=== PATIENT | male | born 1990 | race Caucasian/White ===

== ENCOUNTER → 2019-11-14 | Outpatient (CLI) | payer OTHER ==
[~2019-11-14] MED LIST: BREO ELLIPTA 11 EACH INH; CLARITIN10 MG PO; FUROSEMIDE 40 M40 MG PO; LISINOPRIL20 MG PO; LORCET 5-325 M1 EACH PO; MELATONIN3 M1 PO; NORVASC10 MG PO; PREDNISONE 10 M10 M1 PO; PROAIR HFA8.5 GM INH; RENVELA800 MG PO
--- NOTE | ~2019-11-14 | OP ---
[facility] [address] [place] [address] OPERATIVE REPORT Name: DEBBIE KAM III Room: [facility]#: [id number] Admission: 11/14/19 Attend Phys: Jacques Rodríguez Discharge: Date of : 86 Report #: [id number] THIS REPORT FOR: //name// cc: ZAINAB MEEK DO Physician not on staff ~ THIS REPORT FOR: //name// CC: Jacques MEEK Physician staff DATE OF SERVICE: 11/19/2019 PREOPERATIVE DIAGNOSIS: End-stage renal disease. POSTOPERATIVE DIAGNOSIS: End-stage renal disease. OPERATION: 1. Laparoscopic placement of tunneled intraperitoneal catheter. 2. Laparoscopic omentopexy. SURGEON: Jacques Rodríguez MD ANESTHESIA: General. ESTIMATED BLOOD LOSS: Minimal. SPECIMEN: None. DESCRIPTION OF PROCEDURE: After informed consent was obtained, the patient was brought to the operating room and placed supine. SCDs were placed and working, preoperative antibiotics were administered, general anesthesia was induced. The abdomen was prepped and draped in a usual sterile fashion. A 5 mm incision was made in the left upper quadrant. A 5 mm trocar was placed under direct vision. Pneumoperitoneum was established. Left sided 5 mm trocar was placed. A left rectus sheath, 8 mm trocar was placed. A 62 cm [employer] catheter was placed through the 8 mm port. The tip was then placed down into the pelvis. Catheter was then tunneled to the left upper quadrant of the abdomen using a tunneling device. The omentum was then brought up to the right upper quadrant. A 2-0 Vicryl suture was used to go through the skin and the fascia down through the omentum and then back out through the skin, performing an omentopexy. This was tied down. The ports were removed under direct vision. [place] [address] OPERATIVE REPORT Name: DEBBIE KAM III Room: [facility]#: [id number] Admission: 11/14/19 Attend Phys: Jacques Rodríguez Discharge: Date of : 86 Report #: [id number] easily with 750 mL of heparinized saline. It drained easily as well. A 500 mL of heparinized saline was left in the abdomen. The skin was then closed with 4-0 Monocryl. Sterile dressings were applied. COMPLICATIONS: None. DISPOSITION: The patient was taken to recovery in satisfactory condition. By: [id number] [id number] Rodríguez MD /marta
== END ==
LOC: M.LAB 10:44
PROVIDERS: ATTEND Surgery
DX: Z01.812 Encounter for preprocedural laboratory examination (principal); Z11.9 Encounter for screening for infectious and parasitic diseases, unspecified

== ENCOUNTER 2019-11-19 09:48 | Observation (INO) | payer OTHER ==
[~2019-11-19] VITALS: Ht 193 cm; Wt 71.0 kg
[~2019-11-19 09:48] MED LIST changes: -LORCET 5-325 M1 EACH PO
[2019-11-19 10:28] LABS: HEMATOCRIT 27.2 % (42.0-52.0); HEMOGLOBIN 9.8 gm/dL (14.0-18.0); MCH 31.3 pg (26.0-34.0); MCHC 35.9 g/dL (28.0-37.0); MCV 87.3 fL (80.0-100.0); MPV 7.3 fl. (7.2-11.1); RBC 3.11 mil/uL (4.50-6.00); WBC 8.1 thou/uL (4.0-11.0)
[2019-11-19 10:37] LABS: CREATININE 10.6 mg/dL (0.6-1.3); POTASSIUM 5.2 mmol/L (3.5-5.1)
[2019-11-19] MEDS ORDERED: LORCET 5-325 M1 EACH PO (14:12)
--- NOTE | 2019-11-19 16:32 | EKG ---
[place] [address] ELECTROCARDIOGRAM REPORT Name: DEBBIE KAM III Room: [facility]#: [id number] Admission: 11/19/19 Attend Phys: Jacques Steiner Discharge: Date of : 86 Date of Service: 11/19/19 1013 Report #: [id number] THIS REPORT FOR: //name// 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
[2019-11-19 18:40] VITALS: BP 170/95
[2019-11-19 23:41] VITALS: BP 135/85
--- NOTE | 2019-11-20 00:53 | NUR ---
AT [address] VANN ON STATUS OF PATIENT'S DRSG - 1/2 THICKNESS OF 4X4 GAUZE SATURATED, TOP LAYERS HAVE BLEEDING LESS THAN SIZE OF DIME. ORDER GIVEN TO REMOVE FOAM TAPE, REINFORCE WITH TWO BOXES OF 4X4 GAUZE, PLACE FOAM TAPE REALLY TIGHTLY, AND REAPPLY ABD BINDER; AM CBC LAB. DR VANN WILL SEE PATIENT AT 6AM.
[2019-11-20 04:28] LABS: HEMATOCRIT 21.8 % (42.0-52.0); HEMOGLOBIN 7.9 gm/dL (14.0-18.0); MCH 31.5 pg (26.0-34.0); MCHC 36.1 g/dL (28.0-37.0); MCV 87.4 fL (80.0-100.0); MPV 8.1 fl. (7.2-11.1); NUCLEATED RBCS 0 /100WBC; PLATELET COUNT* 129 thou/uL (150-400); RBC 2.49 mil/uL (4.50-6.00); RDW-CV 13.1 % (10.5-14.5); WBC 8.9 thou/uL (4.0-11.0)
[2019-11-20 05:54] LABS: ABSOLUTE LYMPHOCYTES 0.3 thou/uL (0.8-5.3); ABSOLUTE MONOCYTES 0.2 thou/uL (0.0-1.2); ABSOLUTE NEUTROPHILS 8.5 thou/uL (1.6-8.1); PLATELET ESTIMATE DECREASED
[2019-11-20 05:55] LABS: ANISOCYTOSIS Occasional; POIKILOCYTOSIS Occasional; TOXIC GRANULATION 1+
[2019-11-20] MEDS ORDERED: FOSINOPRIL SODI40 M1 PO (05:56)
--- NOTE | 2019-11-20 07:31 | NUR ---
PT A&OX4, ON 2L NC-OXYGEN DC'D 0700, VSS, PAIN MEDS REQUESTED AND GIVEN ORDERED, DRSG REINFORCED BY NURSE ORDERED - DRSG CHGD BY DR. VANN AT APPROX 0612. HOURLY ROUNDINGS COMPLETE. REPORT GIVEN AND CARE TRANSFERED TO DAY SHIFT NURSE AT APPROX 0720.
[2019-11-20 07:50] VITALS: BP 135/85
[2019-11-20 08:00] VITALS: BP 146/86
[2019-11-20 08:01] VITALS: BP 135/85
--- NOTE | 2019-11-20 09:52 | NUR ---
PT AOX4. UP IN ROOM WITH MINIMAL ASSIST. C/O MILD DISCOMFORT AT DC. PT ACCOMPANIED BY FATHER AND GIVEN DISCHARGE INSTRUCTIONS. PRESCRIPTIONS GIVEN TO PATIENT WITH CARE NOTES AND BELONGINGS RETURNED. PT VERBALIZED UNDERSTANDING OF INSTRUCTIONS AND VOICED NO CONCERNS. IV REMOVED.
[2019-11-20 09:54] VITALS: BP 135/85
== END 2019-11-20 08:30 | disposition home or self-care (01) ==
LOC: M.SUR 09:48 → M.ORTHSURG 17:39
PROVIDERS: Anesthesiology; ADMIT Surgery; ATTEND Surgery
DX: I12.0 Hypertensive chronic kidney disease with stage 5 chronic kidney disease or end stage renal disease (principal); N18.6 End stage renal disease; J45.909 Unspecified asthma, uncomplicated; F17.210 Nicotine dependence, cigarettes, uncomplicated; Z99.2 Dependence on renal dialysis; Z79.899 Other long term (current) drug therapy